=== PATIENT | male | born 1980 | race Caucasian/White ===

== ENCOUNTER 2017-03-05 08:55 | Emergency (ER) | payer OTHER ==
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
--- NOTE | 2017-03-05 11:45 | ED ORDER SUMMARY ---
..... Patient: CHANTAL BRAVO OrderSheet [facility] VisitID: [id number] [place] [address] 36y, M Registration Date/Time: 03/05/2017 ORDER SHEET Weight: 74.8 kg (stated) Allergies: No Known Drug Allergy GENERAL ORDERS: Hip 2V Left w AP Pelvis Urgent (09:54 03/05/2017 Lidia LEZAMA) (Ack 9:55 Jessica) (10:17 Americo Quintana) MEDICATION ORDERS: IV FLUIDS: ORDER SHEET NOTES: [Electronically signed by Keisha Chun R.N. (15:40 03/05/2017)] [Electronically signed by Aiden Arana MD (02:50 03/07/2017)] [Electronically locked/signed by Keisha Chun R.N. (15:40 03/05/2017)]
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
--- NOTE | 2017-03-05 11:45 | ED ORDER SUMMARY ---
..... Patient: CHANTAL BRAVO OrderSheet [facility] VisitID: [id number] [place] [address] 36y, M Registration Date/Time: 03/05/2017 ORDER SHEET Weight: 74.8 kg (stated) Allergies: No Known Drug Allergy GENERAL ORDERS: Hip 2V Left w AP Pelvis Urgent (09:54 03/05/2017 Lidia LEZAMA) (Ack 9:55 Jessica) (10:17 Americo Quintana) MEDICATION ORDERS: IV FLUIDS: ORDER SHEET NOTES: [Electronically signed by Keisha Chun R.N. (15:40 03/05/2017)] [Electronically signed by Aiden Arana MD (02:50 03/07/2017)] [Electronically locked/signed by Keisha Chun R.N. (15:40 03/05/2017)]
--- NOTE | 2017-03-07 02:50 | ED MAR SUMMARY ---
..... Medication Administration Record [facility] [address] [place] [id number] Patient: CHANTAL BRAVO Visit ID: [id number] 36y, M Weight: 74.8 kg Height/Length: 74 in BMI: 21.2 ALLERGIES: No Known Drug Allergy
--- NOTE | 2017-03-07 02:50 | ED MED RECONCILIATION SUMMARY ---
Patient: CHANTAL BRAVO Medication Reconciliation Report [facility] VisitID: [id number] [place] [address] 36y, M Registration Date/Time: 03/05/2017 Weight: 74.8 kg Height/Length: 74 in. BMI: 21.2 ALLERGIES: No Known Drug Allergy The patient's Home Medications are listed below: NONE. The source(s) of the original Home Medication information: patient The following Medications were given to the patient in the Emergency Department: None. The following Medications were prescribed to the patient: Ibuprofen 600mg tablets: take 1 tablet orally every 8 hours as needed for pain. Dispense thirty (30). No refills. -- Aiden Arana MD
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
--- NOTE | 2017-03-07 02:50 | ED MAR SUMMARY ---
..... Medication Administration Record [facility] [address] [place] [id number] Patient: CHANTAL BRAVO Visit ID: [id number] 36y, M Weight: 74.8 kg Height/Length: 74 in BMI: 21.2 ALLERGIES: No Known Drug Allergy
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
--- NOTE | 2017-03-07 02:50 | ED MED RECONCILIATION SUMMARY ---
Patient: CHANTAL BRAVO Medication Reconciliation Report [facility] VisitID: [id number] [place] [address] 36y, M Registration Date/Time: 03/05/2017 Weight: 74.8 kg Height/Length: 74 in. BMI: 21.2 ALLERGIES: No Known Drug Allergy The patient's Home Medications are listed below: NONE. The source(s) of the original Home Medication information: patient The following Medications were given to the patient in the Emergency Department: None. The following Medications were prescribed to the patient: Ibuprofen 600mg tablets: take 1 tablet orally every 8 hours as needed for pain. Dispense thirty (30). No refills. -- Aiden Arana MD
== END 2017-03-05 12:00 | disposition home or self-care (01) ==
LOC: ED SRH 08:55
DX: S00.93XA Contusion of unspecified part of head, initial encounter (principal); S76.012A Strain of muscle, fascia and tendon of left hip, initial encounter; Y04.0XXA Assault by unarmed brawl or fight, initial encounter; Y93.89 Activity, other specified; Y99.8 Other external cause status; Y92.481 Parking lot as the place of occurrence of the external cause

== ENCOUNTER 2017-03-20 10:50 | Emergency (ER) | payer OTHER ==
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
--- NOTE | 2017-03-20 13:27 | ED ORDER SUMMARY ---
..... Patient: CHANTAL BRAVO OrderSheet [facility] VisitID: [id number] [place] [address] 36y, M Registration Date/Time: 03/20/2017 ORDER SHEET Weight: 77.1 kg (stated) Allergies: No Known Drug Allergy GENERAL ORDERS: Hand 3 or 4V Right Urgent (11:11 03/20/2017 MWinterer R.N. per protocol) (Ack 11:16 KHoerner) (11:41 KHoerner) Forearm Right Urgent (11:12 03/20/2017 MWinterer R.N. per protocol) (Ack 11:16 KHoerner) (11:41 KHoerner) (Cancelled: Patient Xqcqlwa08:41 KHoerner) CBC w Diff Urgent (12:34 03/20/2017 Vicky Rich) (Ack 12:36 KHoerner) (12:44 MWinterer R.N.) CMP Urgent (12:34 03/20/2017 Vicky Rich) (Ack 12:36 KHoerner) (12:44 MWinterer R.N.) Hand 2V Right Urgent (14:59 03/20/2017 LNations ER Tech1 verbal order read back to Vicky Rich) (Cancelled: Wrong Order15:03 KHoerner) Hand 3 or 4V Right Urgent (15:03 03/20/2017 KHoerner verbal order read back to Vicky Rich) (Ack 15:03 KHoerner) (15:25 KHoerner) MEDICATION ORDERS: Tdap IM 0.5 mL (NOW, per protocol) (10:59 03/20/2017 MWinterer R.N. per protocol) (11:00 JBoardletim R.N.) Toradol IM 60 mg (NOW) (12:00 03/20/2017 MWinterer R.N. verbal order read back to Vicky Rich) (12:00 MWinterer R.N.) Lidocaine-Epinephrine Injection 2 % (soln) (NOW) (14:24 03/20/2017 Vicky Rich) (Ack 14:25 JBoarclement R.N.) (15:09 MWinterer R.N.) IV FLUIDS: IV Saline Lock (12:34 03/20/2017 Vicky Rich) (12:44 MWinterer R.N.) Cefazolin IV 1 gm/50mL (NOW) (12:58 03/20/2017 Vicky Rich) (Ack 13:03 MWinterer R.N.) (13:14 MWinterer R.N.) ORDER SHEET NOTES: This document has not been locked and should not be saved in the medical record.
--- NOTE | 2017-03-20 13:27 | ED CLINICAL REPORT ---
Clinical Report - Physicians/Mid Levels [facility] [address] [place] [address] 03/20/2017 10:52 Patient: CHANTAL BRAVO *This is a preliminary document and is subject to change Time Seen: 11:12; initial patient contact. PROGRESS AND PROCEDURES Procedural Sedation: Time: 15:26. Indication: (removal of foreign bodies). Laceration repair. Time-out completed immediately before the procedure. Last po intake: last night. ASA classification: 1 - normal healthy patient. History / physical exam. See physical exam recorded above. Mallampati Classification: Class 1 - soft palate, anterior / posterior tonsillar pillars and uvula visible. Normal airway anatomy. Preparation: consent was obtained and the risks of the procedure, benefits and alternatives were explained to patient. IV established. O2 administered. Placed on pulse oximeter and electronic tech. Suction was made available. Medications: Propofol IV administered by physician. Patient status during sedation: was attended constantly and was cooperative was asleep with sluggish response to stimulation. Vitals were stable. Oxygen saturation levels were normal. The airway was maintained. The recovery was uneventful. Complications: None. Post-procedure: Recovery was uneventful. Returned to baseline. Mental status normal. No acute distress. Sedation and procedure performed by me; intra-service time 1-15 minutes. Removal of Soft Tissue Foreign Body: Time: 15:27. Per protocol, time-out completed immediately before the procedure. The foreign body was glass. Located in the right hand. Prior to the procedure the risks, benefits and alternatives to the procedure were explained and consent was obtained. Anesthesia provided using 2% lidocaine with epinephrine. Wound prepped with Hibiclens and sterile field employed. Wound explored. Foreign body palpated and removed using forceps. Wound irrigated extensively. The foreign body removed was deep. Procedural sedation was employed. Tetanus immunization given. Warnings provided regarding redness, swelling, fever, drainage, bleeding and the possibility of a retained foreign body. Discussed case with on-call health care provider, (call returned 12:42 Dr. Campo. Recommended attempting to remove in ED by me.). Disposition: Discharged home in good and improved condition. CLINICAL IMPRESSION Removal of deep glass soft tissue foreign body to the right wrist. Laceration present. INSTRUCTIONS Protect wound and keep wound area clean. Change dressing twice daily. You may wash wounds briefly, then dry. Apply bacitracin twice daily. Sutures should be removed in seven days. Prescription Medications: Hydrocodone/APAP 5mg / 325mg: take 1-2 orally every 6 hours as needed for pain. Dispense fifteen (15). No refill. Cephalexin 500 mg: take 1 capsule orally every 6 hours for 7 days. No refill. Follow-up: Screening today revealed the patient's blood pressure to be in the pre-hypertensive range. The patient should follow up with a primary care provider for blood pressure management. AMA warnings: Time of assessment: 13:27. Oriented to person, place, and time. Gives appropriate answers and rational explanation of refusal of care. No indication for involuntary commitment is present, signs of psychosis, auditory hallucinations, delusional thinking or suicidal ideations. No slurred speech, tangential thinking, visual hallucinations or homicidal ideations. Speaks coherently. Abstract thinking intact. Clinical Impression: the patient has the capacity to make decisions regarding the medical care offered. Relevant issues reviewed and discussed with the patient. Aware of suspected diagnosis suggested by screening exam. The suspected diagnosis, based upon the initiated medical screening exam, is foreign body(glass) in right hand and has been discussed with the patient. Acknowledges understanding of the reasons for recommendations regarding medical treatment. The recommended medical care being refused is Numbing area to be able to remove the glass. Offered sedation, but pt does not have a ride and refuses to have the procedure done not sedated. (numb areas to remove glass). Discharge instructions were not provided. REFUSAL OF CARE STATEMENT (patient to review and sign in discharge instructions): I have read this paragraph. I understand that a doctor at this hospital wants to give me certain medical care. The doctor explained that care to me, and I understand what that care is. The doctor also explained to me what could happen to me if I leave here without having that care, and I understand what he said. I want to leave this hospital without receiving the recommended care. I know that I am welcome to return to this hospital at any time to receive the recommended care or any other care that I may need at any time, regardless of my ability to pay for such care. Follow-up with: [facility], , , [address], , [place], [address] Follow up in one week for suture removal. Call for an appointment. Hosea [address].
--- NOTE | 2017-03-20 13:27 | ED ORDER SUMMARY ---
..... Patient: CHANTAL BRAVO OrderSheet [facility] VisitID: [id number] [place] [address] 36y, M Registration Date/Time: 03/20/2017 ORDER SHEET Weight: 77.1 kg (stated) Allergies: No Known Drug Allergy GENERAL ORDERS: Hand 3 or 4V Right Urgent (11:11 03/20/2017 MWinterer R.N. per protocol) (Ack 11:16 KHoerner) (11:41 KHoerner) Forearm Right Urgent (11:12 03/20/2017 MWinterer R.N. per protocol) (Ack 11:16 KHoerner) (11:41 KHoerner) (Cancelled: Patient Oexszup84:41 KHoerner) CBC w Diff Urgent (12:34 03/20/2017 Vicky Rich) (Ack 12:36 KHoerner) (12:44 MWinterer R.N.) CMP Urgent (12:34 03/20/2017 Vicky Rich) (Ack 12:36 KHoerner) (12:44 MWinterer R.N.) Hand 2V Right Urgent (14:59 03/20/2017 LNations ER Tech1 verbal order read back to Vicky Rich) (Cancelled: Wrong Order15:03 KHoerner) Hand 3 or 4V Right Urgent (15:03 03/20/2017 KHoerner verbal order read back to Vicky Rich) (Ack 15:03 KHoerner) (15:25 KHoerner) MEDICATION ORDERS: Tdap IM 0.5 mL (NOW, per protocol) (10:59 03/20/2017 MWinterer R.N. per protocol) (11:00 JBoardletim R.N.) Toradol IM 60 mg (NOW) (12:00 03/20/2017 MWinterer R.N. verbal order read back to Vicky Rich) (12:00 MWinterer R.N.) Lidocaine-Epinephrine Injection 2 % (soln) (NOW) (14:24 03/20/2017 Vicky Rich) (Ack 14:25 JBoarclement R.N.) (15:09 MWinterer R.N.) IV FLUIDS: IV Saline Lock (12:34 03/20/2017 Vicky Rich) (12:44 MWinterer R.N.) Cefazolin IV 1 gm/50mL (NOW) (12:58 03/20/2017 Vicky Rich) (Ack 13:03 MWinterer R.N.) (13:14 MWinterer R.N.) ORDER SHEET NOTES: This document has not been locked and should not be saved in the medical record.
--- NOTE | 2017-03-20 13:27 | ED CLINICAL REPORT ---
Clinical Report - Physicians/Mid Levels [facility] [address] [place] [address] 03/20/2017 10:52 Patient: CHANTAL BRAVO *This is a preliminary document and is subject to change Time Seen: 11:12; initial patient contact. PROGRESS AND PROCEDURES Procedural Sedation: Time: 15:26. Indication: (removal of foreign bodies). Laceration repair. Time-out completed immediately before the procedure. Last po intake: last night. ASA classification: 1 - normal healthy patient. History / physical exam. See physical exam recorded above. Mallampati Classification: Class 1 - soft palate, anterior / posterior tonsillar pillars and uvula visible. Normal airway anatomy. Preparation: consent was obtained and the risks of the procedure, benefits and alternatives were explained to patient. IV established. O2 administered. Placed on pulse oximeter and manager decision support. Suction was made available. Medications: Propofol IV administered by physician. Patient status during sedation: was attended constantly and was cooperative was asleep with sluggish response to stimulation. Vitals were stable. Oxygen saturation levels were normal. The airway was maintained. The recovery was uneventful. Complications: None. Post-procedure: Recovery was uneventful. Returned to baseline. Mental status normal. No acute distress. Sedation and procedure performed by me; intra-service time 1-15 minutes. Removal of Soft Tissue Foreign Body: Time: 15:27. Per protocol, time-out completed immediately before the procedure. The foreign body was glass. Located in the right hand. Prior to the procedure the risks, benefits and alternatives to the procedure were explained and consent was obtained. Anesthesia provided using 2% lidocaine with epinephrine. Wound prepped with Hibiclens and sterile field employed. Wound explored. Foreign body palpated and removed using forceps. Wound irrigated extensively. The foreign body removed was deep. Procedural sedation was employed. Tetanus immunization given. Warnings provided regarding redness, swelling, fever, drainage, bleeding and the possibility of a retained foreign body. Discussed case with on-call health care provider, (call returned 12:42 Dr. Campo. Recommended attempting to remove in ED by me.). Disposition: Discharged home in good and improved condition. CLINICAL IMPRESSION Removal of deep glass soft tissue foreign body to the right wrist. Laceration present. INSTRUCTIONS Protect wound and keep wound area clean. Change dressing twice daily. You may wash wounds briefly, then dry. Apply bacitracin twice daily. Sutures should be removed in seven days. Prescription Medications: Hydrocodone/APAP 5mg / 325mg: take 1-2 orally every 6 hours as needed for pain. Dispense fifteen (15). No refill. Cephalexin 500 mg: take 1 capsule orally every 6 hours for 7 days. No refill. Follow-up: Screening today revealed the patient's blood pressure to be in the pre-hypertensive range. The patient should follow up with a primary care provider for blood pressure management. AMA warnings: Time of assessment: 13:27. Oriented to person, place, and time. Gives appropriate answers and rational explanation of refusal of care. No indication for involuntary commitment is present, signs of psychosis, auditory hallucinations, delusional thinking or suicidal ideations. No slurred speech, tangential thinking, visual hallucinations or homicidal ideations. Speaks coherently. Abstract thinking intact. Clinical Impression: the patient has the capacity to make decisions regarding the medical care offered. Relevant issues reviewed and discussed with the patient. Aware of suspected diagnosis suggested by screening exam. The suspected diagnosis, based upon the initiated medical screening exam, is foreign body(glass) in right hand and has been discussed with the patient. Acknowledges understanding of the reasons for recommendations regarding medical treatment. The recommended medical care being refused is Numbing area to be able to remove the glass. Offered sedation, but pt does not have a ride and refuses to have the procedure done not sedated. (numb areas to remove glass). Discharge instructions were not provided. REFUSAL OF CARE STATEMENT (patient to review and sign in discharge instructions): I have read this paragraph. I understand that a doctor at this hospital wants to give me certain medical care. The doctor explained that care to me, and I understand what that care is. The doctor also explained to me what could happen to me if I leave here without having that care, and I understand what he said. I want to leave this hospital without receiving the recommended care. I know that I am welcome to return to this hospital at any time to receive the recommended care or any other care that I may need at any time, regardless of my ability to pay for such care. Follow-up with: [facility], , , [address], , [place], [address] Follow up in one week for suture removal. Call for an appointment. Hosea Rodgers Dr.
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
--- NOTE | 2017-03-20 15:51 | DIAGNOSTIC IMAGING REPORT ---
PROCEDURE: XR HAND 3 OR 4 VIEWS - RIGHT INDICATION: TRAUMA/INJURY TECHNIQUE: Four views. COMPARISON: Wrist films same date at 11:00 a.m. FINDINGS: Osseous structures and joint spaces are normal. Multiple large glass fragments have been removed. Five to six sub-millimeter fragments are seen in the medial soft tissue. IMPRESSION: 1. Status post removal of large class fragments.
--- NOTE | 2017-03-20 21:46 | ED DISCHARGE INSTRUCTIONS ---
Patient: CHANTAL BRAVO General Instructions [facility] VisitID: [id number] [place] [address] 36y, M Registration Date/Time: 03/20/2017 Removal of deep glass soft tissue foreign body to the right wrist. Laceration present. INSTRUCTIONS Protect wound and keep wound area clean. Change dressing twice daily. You may wash wounds briefly, then dry. Apply bacitracin twice daily. Sutures should be removed in seven days. Prescription Medications: Hydrocodone/APAP 5mg / 325mg: take 1-2 orally every 6 hours as needed for pain. Dispense fifteen (15). No refill. Cephalexin 500 mg: take 1 capsule orally every 6 hours for 7 days. No refill. Follow-up: Screening today revealed the patient's blood pressure to be in the pre-hypertensive range. The patient should follow up with a primary care provider for blood pressure management. AMA warnings: Time of assessment: 13:27. Oriented to person, place, and time. Gives appropriate answers and rational explanation of refusal of care. No indication for involuntary commitment is present, signs of psychosis, auditory hallucinations, delusional thinking or suicidal ideations. No slurred speech, tangential thinking, visual hallucinations or homicidal ideations. Speaks coherently. Abstract thinking intact. Clinical Impression: the patient has the capacity to make decisions regarding the medical care offered. Relevant issues reviewed and discussed with the patient. Aware of suspected diagnosis suggested by screening exam. The suspected diagnosis, based upon the initiated medical screening exam, is foreign body(glass) in right hand and has been discussed with the patient. Acknowledges understanding of the reasons for recommendations regarding medical treatment. The recommended medical care being refused is Numbing area to be able to remove the glass. Offered sedation, but pt does not have a ride and refuses to have the procedure done not sedated. (numb areas to remove glass). Discharge instructions were not provided. REFUSAL OF CARE STATEMENT (patient to review and sign in discharge instructions): I have read this paragraph. I understand that a doctor at this hospital wants to give me certain medical care. The doctor explained that care to me, and I understand what that care is. The doctor also explained to me what could happen to me if I leave here without having that care, and I understand what he said. I want to leave this hospital without receiving the recommended care. I know that I am welcome to return to this hospital at any time to receive the recommended care or any other care that I may need at any time, regardless of my ability to pay for such care. Follow-up with: [facility], , , [address], , [place], [address] Follow up in one week for suture removal. Call for an appointment. ADDITIONAL INFORMATION Foreign ObjectUnder The Skin, Removed An object has been removed from under your skin. Although care was taken to remove all particles present, there is always a chance that a small piece may have been left behind. Very small particles that remain under the skin usually cause no problem and need no further treatment. Home care The following guidelines will help you care for your wound at home: Keep the wound clean and dry. If a bandage was applied and it becomes wet or dirty, replace it. Otherwise, leave it in place for the first 24 hours, then change it once a day or as directed. Ifsutureswere used, clean the wound daily: After removing the bandage, wash the area with soap and water. After cleaning, apply a thin layer of antibiotic ointment. This will keep the wound clean and make it easier to remove the stitches. Reapply the bandage. You may shower as usual after the first 24 hours, but do not soak the area in water (no baths or swimming) until the sutures are removed. If asurgical tape closureswere used, keep the area clean and dry. If it becomes wet, blot it dry with a towel. You may use acetaminophen or ibuprofen to control pain, unless another pain medicine was prescribed.If you have chronic liver or kidney disease or ever had a stomach ulcer or GI bleeding, talk with your doctor before using these medicines. Follow-up care Most skin wounds heal within ten days. However, there is an increased risk of infection if there is any particle remaining under the skin. Therefore, check the wound daily for the signs listed below. Stitches should be removed within 714 days. If surgical tape closures were used, remove them after seven days unless told otherwise. Note:Any X-rays taken will be reviewed by a radiologist. You will be notified if there are new findings that may affect your care. When to seek medical care Get prompt medical attention if any of the following occur: Increasing pain in the wound Redness, swelling or pus coming from the wound Fever of 100.4F (38C) or higher, or as directed by your health care provider Bandage Change If the bandage becomes wet or dirty, replace it. Otherwise, leave it in place for the first 24 hours. Then once a day: After removing the bandage, wash the area with soap and water. Use a wet cotton swab to loosen and remove any blood or crust that forms on the wound. After cleaning, apply a thin layer of antibiotic ointment or cream. Reapply the bandage. You may shower as usual after the first 24 hours. If the bandage is on an arm or leg, cover it with a plastic bag rubber banded at both ends before showering. No tub baths or swimming until the bandage is removed and the wound healed (at least 7 days). Hydrocodone Bitartrate, Acetaminophen Oral tablet What is this medicine? ACETAMINOPHEN; HYDROCODONE (a set a BETH nikki fen; radha droe KOE done) is a pain reliever. It is used to treat mild to moderate pain. How should I use this medicine? Take this medicine by mouth. Swallow it with a full glass of water. Follow the directions on the prescription label. If the medicine upsets your stomach, take the medicine with food or milk. Do not take more than you are told to take. Talk to your superintendent maintenance airports regarding the use of this medicine in children. This medicine is not approved for use in children. What side effects may I notice from receiving this medicine? Side effects that you should report to your doctor or health resident care director as soon as possible: allergic reactions like skin rash, itching or hives, swelling of the face, lips, or tongue breathing problems confusion feeling faint or lightheaded, falls stomach pain yellowing of the eyes or skin Side effects that usually do not require medical attention (report to your doctor or health resident care director if they continue or are bothersome): nausea, vomiting stomach upset What may interact with this medicine? alcohol antihistamines isoniazid medicines for depression, anxiety, or psychotic disturbances medicines for sleep muscle relaxants naltrexone narcotic medicines (opiates) for pain phenobarbital ritonavir tramadol What if I miss a dose? If you miss a dose, take it as soon as you can. If it is almost time for your next dose, take only that dose. Do not take double or extra doses. Where should I keep my medicine? Keep out of the reach of children. This medicine can be abused. Keep your medicine in a safe place to protect it from theft. Do not share this medicine with anyone. Selling or giving away this medicine is dangerous and against the law. Store at room temperature between 15 and 30 degrees C (59 and 86 degrees F). Protect from light. Keep container tightly closed. Throw away any unused medicine after the expiration date. Discard unused medicine and used packaging carefully. Pets and children can be harmed if they find used or lost packages. What should I tell my health care provider before I take this medicine? They need to know if you have any of these conditions: brain tumor Crohn's disease, inflammatory bowel disease, or ulcerative colitis drink more than 3 alcohol-containing drinks per day drug abuse or addiction head injury heart or circulation problems kidney disease or problems going to the bathroom liver disease lung disease, asthma, or breathing problems an unusual or allergic reaction to acetaminophen, hydrocodone, other opioid analgesics, other medicines, foods, dyes, or preservatives or trying to get breast-feeding What should I watch for while using this medicine? Tell your doctor or health resident care director if your pain does not go away, if it gets worse, or if you have new or a different type of pain. You may develop tolerance to the medicine. Tolerance means that you will need a higher dose of the medicine for pain relief. Tolerance is normal and is expected if you take the medicine for a long time. Do not suddenly stop taking your medicine because you may develop a severe reaction. Your body becomes used to the medicine. This does NOT mean you are addicted. Addiction is a behavior related to getting and using a drug for a non-medical reason. If you have pain, you have a medical reason to take pain medicine. Your doctor will tell you how much medicine to take. If your doctor wants you to stop the medicine, the dose will be slowly lowered over time to avoid any side effects. You may get drowsy or dizzy when you first start taking the medicine or change doses. Do not drive, use machinery, or do anything that may be dangerous until you know how the medicine affects you. Stand or sit up slowly. There are different types of narcotic medicines (opiates) for pain. If you take more than one type at the same time, you may have more side effects. Give your health care provider a list of all medicines you use. Your doctor will tell you how much medicine to take. Do not take more medicine than directed. Call emergency for help if you have problems breathing. The medicine will cause constipation. Try to have a bowel movement at least every 2 to 3 days. If you do not have a bowel movement for 3 days, call your doctor or health resident care director. Too much acetaminophen can be very dangerous. Do not take Tylenol (acetaminophen) or medicines that contain acetaminophen with this medicine. Many non-prescription medicines contain acetaminophen. Always read the labels carefully. Cephalexin Monohydrate Oral tablet What is this medicine? CEPHALEXIN (sef a YOSEF in) is a cephalosporin antibiotic. It is used to treat certain kinds of bacterial infections It will not work for colds, flu, or other viral infections. How should I use this medicine? Take this medicine by mouth with a full glass of water. Follow the directions on the prescription label. This medicine can be taken with or without food. Take your medicine at regular intervals. Do not take your medicine more often than directed. Take all of your medicine as directed even if you think you are better. Do not skip doses or stop your medicine early. Talk to your superintendent maintenance airports regarding the use of this medicine in children. While this drug may be prescribed for selected conditions, precautions do apply. What side effects may I notice from receiving this medicine? Side effects that you should report to your doctor or health resident care director as soon as possible: allergic reactions like skin rash, itching or hives, swelling of the face, lips, or tongue breathing problems pain or trouble passing urine redness, blistering, peeling or loosening of the skin, including inside the mouth severe or watery diarrhea unusually weak or tired yellowing of the eyes, skin Side effects that usually do not require medical attention (report to your doctor or health resident care director if they continue or are bothersome): gas or heartburn genital or anal irritation headache joint or muscle pain nausea, vomiting What may interact with this medicine? probenecid some other antibiotics What if I miss a dose? If you miss a dose, take it as soon as you can. If it is almost time for your next dose, take only that dose. Do not take double or extra doses. There should be at least 4 to 6 hours between doses. Where should I keep my medicine? Keep out of the reach of children. Store at room temperature between 59 and 86 degrees F (15 and 30 degrees C). Throw away any unused medicine after the expiration date. What should I tell my health care provider before I take this medicine? They need to know if you have any of these conditions: kidney disease stomach or intestine problems, especially colitis an unusual or allergic reaction to cephalexin, other cephalosporins, penicillins, other antibiotics, medicines, foods, dyes or preservatives or trying to get breast-feeding What should I watch for while using this medicine? Tell your doctor or health resident care director if your symptoms do not begin to improve in a few days. Do not treat diarrhea with over the counter products. Contact your doctor if you have diarrhea that lasts more than 2 days or if it is severe and watery. If you have diabetes, you may get a false-positive result for sugar in your urine. Check with your doctor or health resident care director. You have been given the following additional information: Foreign Body, Soft Tissue (Removed) Dressing Change Hydrocodone Bitartrate, Acetaminophen Oral tablet Cephalexin Monohydrate Oral tablet (Electronically signed by Hosea Rodgers Dr. 03/20/2017 21:46)
--- NOTE | 2017-03-20 21:46 | ED MED RECONCILIATION SUMMARY ---
Patient: CHANTAL BRAVO Medication Reconciliation Report [facility] VisitID: [id number] [address] [place] [address] 36y, M Registration Date/Time: 03/20/2017 Weight: 77.1 kg Height/Length: 74 in. BMI: 21.8 ALLERGIES: No Known Drug Allergy The patient's Home Medications are listed below: NONE. The source(s) of the original Home Medication information: patient The following Medications were given to the patient in the Emergency Department: TDAP [IM] IM 0.5 mL, administered: 03/20/2017 11:00:00 AM Toradol [IM] IM 60 mg, administered: 03/20/2017 12:00:00 PM Cefazolin [IVPB] IVPB bolus 0, then 1 gm 100 mL/hr, administered: 03/20/2017 1:14:00 PM Lidocaine-Epinephrine [Injection] Injection 2 %, administered: 03/20/2017 3:09:00 PM IV NS IV Fluids bolus 0, then 150 mL/hr, administered: 03/20/2017 1:14:00 PM IV NS IV Fluids bolus 0, then 999 mL/hr, administered: 03/20/2017 2:41:00 PM The following Medications were prescribed to the patient: Hydrocodone/APAP 5mg / 325mg: take 1-2 orally every 6 hours as needed for pain. Dispense fifteen (15). No refill. -- Hosea Rodgers Dr. Cephalexin 500 mg: take 1 capsule orally every 6 hours for 7 days. No refill. -- Hosea Rodgers Dr.
--- NOTE | 2017-03-20 21:46 | ED MED RECONCILIATION SUMMARY ---
Patient: CHANTAL BRAVO Medication Reconciliation Report [facility] VisitID: [id number] [address] [place] [address] 36y, M Registration Date/Time: 03/20/2017 Weight: 77.1 kg Height/Length: 74 in. BMI: 21.8 ALLERGIES: No Known Drug Allergy The patient's Home Medications are listed below: NONE. The source(s) of the original Home Medication information: patient The following Medications were given to the patient in the Emergency Department: TDAP [IM] IM 0.5 mL, administered: 03/20/2017 11:00:00 AM Toradol [IM] IM 60 mg, administered: 03/20/2017 12:00:00 PM Cefazolin [IVPB] IVPB bolus 0, then 1 gm 100 mL/hr, administered: 03/20/2017 1:14:00 PM Lidocaine-Epinephrine [Injection] Injection 2 %, administered: 03/20/2017 3:09:00 PM IV NS IV Fluids bolus 0, then 150 mL/hr, administered: 03/20/2017 1:14:00 PM IV NS IV Fluids bolus 0, then 999 mL/hr, administered: 03/20/2017 2:41:00 PM The following Medications were prescribed to the patient: Hydrocodone/APAP 5mg / 325mg: take 1-2 orally every 6 hours as needed for pain. Dispense fifteen (15). No refill. -- Hosea Rodgers Dr. Cephalexin 500 mg: take 1 capsule orally every 6 hours for 7 days. No refill. -- Hosea Rodgers Dr.
--- NOTE | 2017-03-20 21:46 | ED MAR SUMMARY ---
..... Medication Administration Record [facility] [address] [facility] [address] [address] Patient: CHANTAL BRAVO Visit ID: [id number] 36y, M Weight: 77.1 kg Height/Length: 74 in BMI: 21.8 ALLERGIES: No Known Drug Allergy Given 11:00 03/20/2017 Praveen Beckham R.N. Medication Administered: TDAP [IM], Dose: 0.5 mL IM. Medication Ordered: Tdap IM 0.5 mL (NOW, per protocol). Given 12:00 03/20/2017 Keisha Chun R.N. Medication Administered: TORADOL [IM] (KETOROLAC TROMETHAMINE), Dose: 60 mg IM. Medication Ordered: Toradol IM 60 mg (NOW). Start 13:14 03/20/2017 Keisha Chun R.N., Stop 13:33 03/20/2017 Keisha Chun R.N. Medication Administered: CEFAZOLIN [IVPB] (CEFAZOLIN SODIUM), Dose: 1 gm IVPB over 30 minute(s), Rate: 100 mL/hr, Dispensed: 50 mL bag, Site: #1 left AC. Medication Ordered: Cefazolin IV 1 gm/50mL (NOW). Start 13:14 03/20/2017 Keisha Chun R.N., Stop 14:40 03/20/2017 Keisha Chun R.N. Medication Administered: IV NS (SALINE), Dose: IV Fluids over 3 hour(s), Rate: 150 mL/hr, Dispensed: 500 mL bag, Site: #1 left AC. Medication Ordered: IV NS : initial bolus none -, then 1000 mL/hr (NOW). Start 14:41 03/20/2017 Keisha Chun R.N., Stop 15:20 03/20/2017 Keisha Chun R.N. Medication Administered: IV NS (SALINE), Dose: IV Fluids over 30 minute(s), Rate: 999 mL/hr, Dispensed: 1000 mL bag, Site: #1 left AC. Medication Ordered: IV NS : initial bolus none -, then 1000 mL/hr (NOW). Given 15:09 03/20/2017 Keisha Chun R.N. Medication Administered: LIDOCAINE-EPINEPHRINE [INJECTION] (LIDOCAINE-EPINEPHRINE), Dose: 2 % Injection. Medication Ordered: Lidocaine-Epinephrine Injection 2 % (soln) (NOW).
--- NOTE | 2017-03-20 21:46 | ED MAR SUMMARY ---
..... Medication Administration Record [facility] [address] [place] [address] Patient: CHANTAL BRAVO Visit ID: [id number] 36y, M Weight: 77.1 kg Height/Length: 74 in BMI: 21.8 ALLERGIES: No Known Drug Allergy Given 11:00 03/20/2017 Praveen Beckham R.N. Medication Administered: TDAP [IM], Dose: 0.5 mL IM. Medication Ordered: Tdap IM 0.5 mL (NOW, per protocol). Given 12:00 03/20/2017 Keisha Chun R.N. Medication Administered: TORADOL [IM] (KETOROLAC TROMETHAMINE), Dose: 60 mg IM. Medication Ordered: Toradol IM 60 mg (NOW). Start 13:14 03/20/2017 Keisha Chun R.N., Stop 13:33 03/20/2017 Keisha Chun R.N. Medication Administered: CEFAZOLIN [IVPB] (CEFAZOLIN SODIUM), Dose: 1 gm IVPB over 30 minute(s), Rate: 100 mL/hr, Dispensed: 50 mL bag, Site: #1 left AC. Medication Ordered: Cefazolin IV 1 gm/50mL (NOW). Start 13:14 03/20/2017 Keisha Chun R.N., Stop 14:40 03/20/2017 Keisha Chun R.N. Medication Administered: IV NS (SALINE), Dose: IV Fluids over 3 hour(s), Rate: 150 mL/hr, Dispensed: 500 mL bag, Site: #1 left AC. Medication Ordered: IV NS : initial bolus none -, then 1000 mL/hr (NOW). Start 14:41 03/20/2017 Keisha Chun R.N., Stop 15:20 03/20/2017 Keisha Chun R.N. Medication Administered: IV NS (SALINE), Dose: IV Fluids over 30 minute(s), Rate: 999 mL/hr, Dispensed: 1000 mL bag, Site: #1 left AC. Medication Ordered: IV NS : initial bolus none -, then 1000 mL/hr (NOW). Given 15:09 03/20/2017 Keisha Chun R.N. Medication Administered: LIDOCAINE-EPINEPHRINE [INJECTION] (LIDOCAINE-EPINEPHRINE), Dose: 2 % Injection. Medication Ordered: Lidocaine-Epinephrine Injection 2 % (soln) (NOW).
--- NOTE | 2017-03-20 21:46 | ED DISCHARGE INSTRUCTIONS ---
Patient: CHANTAL BRAVO General Inst[facility] VisitID: [id number] [place] [address] 36y, M Registration Date/Time: 03/20/2017 Removal of deep glass soft tissue foreign body to the right wrist. Laceration present. INSTRUCTIONS Protect wound and keep wound area clean. Change dressing twice daily. You may wash wounds briefly, then dry. Apply bacitracin twice daily. Sutures should be removed in seven days. Prescription Medications: Hydrocodone/APAP 5mg / 325mg: take 1-2 orally every 6 hours as needed for pain. Dispense fifteen (15). No refill. Cephalexin 500 mg: take 1 capsule orally every 6 hours for 7 days. No refill. Follow-up: Screening today revealed the patient's blood pressure to be in the pre-hypertensive range. The patient should follow up with a primary care provider for blood pressure management. AMA warnings: Time of assessment: 13:27. Oriented to person, place, and time. Gives appropriate answers and rational explanation of refusal of care. No indication for involuntary commitment is present, signs of psychosis, auditory hallucinations, delusional thinking or suicidal ideations. No slurred speech, tangential thinking, visual hallucinations or homicidal ideations. Speaks coherently. Abstract thinking intact. Clinical Impression: the patient has the capacity to make decisions regarding the medical care offered. Relevant issues reviewed and discussed with the patient. Aware of suspected diagnosis suggested by screening exam. The suspected diagnosis, based upon the initiated medical screening exam, is foreign body(glass) in right hand and has been discussed with the patient. Acknowledges understanding of the reasons for recommendations regarding medical treatment. The recommended medical care being refused is Numbing area to be able to remove the glass. Offered sedation, but pt does not have a ride and refuses to have the procedure done not sedated. (numb areas to remove glass). Discharge instructions were not provided. REFUSAL OF CARE STATEMENT (patient to review and sign in discharge instructions): I have read this paragraph. I understand that a doctor at this hospital wants to give me certain medical care. The doctor explained that care to me, and I understand what that care is. The doctor also explained to me what could happen to me if I leave here without having that care, and I understand what he said. I want to leave this hospital without receiving the recommended care. I know that I am welcome to return to this hospital at any time to receive the recommended care or any other care that I may need at any time, regardless of my ability to pay for such care. Follow-up with: [facility], , , [address], , [place], [id number] Follow up in one week for suture removal. Call for an appointment. ADDITIONAL INFORMATION Foreign ObjectUnder The Skin, Removed An object has been removed from under your skin. Although care was taken to remove all particles present, there is always a chance that a small piece may have been left behind. Very small particles that remain under the skin usually cause no problem and need no further treatment. Home care The following guidelines will help you care for your wound at home: Keep the wound clean and dry. If a bandage was applied and it becomes wet or dirty, replace it. Otherwise, leave it in place for the first 24 hours, then change it once a day or as directed. Ifsutureswere used, clean the wound daily: After removing the bandage, wash the area with soap and water. After cleaning, apply a thin layer of antibiotic ointment. This will keep the wound clean and make it easier to remove the stitches. Reapply the bandage. You may shower as usual after the first 24 hours, but do not soak the area in water (no baths or swimming) until the sutures are removed. If asurgical tape closureswere used, keep the area clean and dry. If it becomes wet, blot it dry with a towel. You may use acetaminophen or ibuprofen to control pain, unless another pain medicine was prescribed.If you have chronic liver or kidney disease or ever had a stomach ulcer or GI bleeding, talk with your doctor before using these medicines. Follow-up care Most skin wounds heal within ten days. However, there is an increased risk of infection if there is any particle remaining under the skin. Therefore, check the wound daily for the signs listed below. Stitches should be removed within 714 days. If surgical tape closures were used, remove them after seven days unless told otherwise. Note:Any X-rays taken will be reviewed by a radiologist. You will be notified if there are new findings that may affect your care. When to seek medical care Get prompt medical attention if any of the following occur: Increasing pain in the wound Redness, swelling or pus coming from the wound Fever of 100.4F (38C) or higher, or as directed by your health care provider Bandage Change If the bandage becomes wet or dirty, replace it. Otherwise, leave it in place for the first 24 hours. Then once a day: After removing the bandage, wash the area with soap and water. Use a wet cotton swab to loosen and remove any blood or crust that forms on the wound. After cleaning, apply a thin layer of antibiotic ointment or cream. Reapply the bandage. You may shower as usual after the first 24 hours. If the bandage is on an arm or leg, cover it with a plastic bag rubber banded at both ends before showering. No tub baths or swimming until the bandage is removed and the wound healed (at least 7 days). Hydrocodone Bitartrate, Acetaminophen Oral tablet What is this medicine? ACETAMINOPHEN; HYDROCODONE (a set a BETH nikki fen; radha droe KOE done) is a pain reliever. It is used to treat mild to moderate pain. How should I use this medicine? Take this medicine by mouth. Swallow it with a full glass of water. Follow the directions on the prescription label. If the medicine upsets your stomach, take the medicine with food or milk. Do not take more than you are told to take. Talk to your glass blower helper regarding the use of this medicine in children. This medicine is not approved for use in children. What side effects may I notice from receiving this medicine? Side effects that you should report to your doctor or health healthcare facility administrator as soon as possible: allergic reactions like skin rash, itching or hives, swelling of the face, lips, or tongue breathing problems confusion feeling faint or lightheaded, falls stomach pain yellowing of the eyes or skin Side effects that usually do not require medical attention (report to your doctor or health healthcare facility administrator if they continue or are bothersome): nausea, vomiting stomach upset What may interact with this medicine? alcohol antihistamines isoniazid medicines for depression, anxiety, or psychotic disturbances medicines for sleep muscle relaxants naltrexone narcotic medicines (opiates) for pain phenobarbital ritonavir tramadol What if I miss a dose? If you miss a dose, take it as soon as you can. If it is almost time for your next dose, take only that dose. Do not take double or extra doses. Where should I keep my medicine? Keep out of the reach of children. This medicine can be abused. Keep your medicine in a safe place to protect it from theft. Do not share this medicine with anyone. Selling or giving away this medicine is dangerous and against the law. Store at room temperature between 15 and 30 degrees C (59 and 86 degrees F). Protect from light. Keep container tightly closed. Throw away any unused medicine after the expiration date. Discard unused medicine and used packaging carefully. Pets and children can be harmed if they find used or lost packages. What should I tell my health care provider before I take this medicine? They need to know if you have any of these conditions: brain tumor Crohn's disease, inflammatory bowel disease, or ulcerative colitis drink more than 3 alcohol-containing drinks per day drug abuse or addiction head injury heart or circulation problems kidney disease or problems going to the bathroom liver disease lung disease, asthma, or breathing problems an unusual or allergic reaction to acetaminophen, hydrocodone, other opioid analgesics, other medicines, foods, dyes, or preservatives or trying to get breast-feeding What should I watch for while using this medicine? Tell your doctor or health healthcare facility administrator if your pain does not go away, if it gets worse, or if you have new or a different type of pain. You may develop tolerance to the medicine. Tolerance means that you will need a higher dose of the medicine for pain relief. Tolerance is normal and is expected if you take the medicine for a long time. Do not suddenly stop taking your medicine because you may develop a severe reaction. Your body becomes used to the medicine. This does NOT mean you are addicted. Addiction is a behavior related to getting and using a drug for a non-medical reason. If you have pain, you have a medical reason to take pain medicine. Your doctor will tell you how much medicine to take. If your doctor wants you to stop the medicine, the dose will be slowly lowered over time to avoid any side effects. You may get drowsy or dizzy when you first start taking the medicine or change doses. Do not drive, use machinery, or do anything that may be dangerous until you know how the medicine affects you. Stand or sit up slowly. There are different types of narcotic medicines (opiates) for pain. If you take more than one type at the same time, you may have more side effects. Give your health care provider a list of all medicines you use. Your doctor will tell you how much medicine to take. Do not take more medicine than directed. Call emergency for help if you have problems breathing. The medicine will cause constipation. Try to have a bowel movement at least every 2 to 3 days. If you do not have a bowel movement for 3 days, call your doctor or health healthcare facility administrator. Too much acetaminophen can be very dangerous. Do not take Tylenol (acetaminophen) or medicines that contain acetaminophen with this medicine. Many non-prescription medicines contain acetaminophen. Always read the labels carefully. Cephalexin Monohydrate Oral tablet What is this medicine? CEPHALEXIN (sef a YOSEF in) is a cephalosporin antibiotic. It is used to treat certain kinds of bacterial infections It will not work for colds, flu, or other viral infections. How should I use this medicine? Take this medicine by mouth with a full glass of water. Follow the directions on the prescription label. This medicine can be taken with or without food. Take your medicine at regular intervals. Do not take your medicine more often than directed. Take all of your medicine as directed even if you think you are better. Do not skip doses or stop your medicine early. Talk to your glass blower helper regarding the use of this medicine in children. While this drug may be prescribed for selected conditions, precautions do apply. What side effects may I notice from receiving this medicine? Side effects that you should report to your doctor or health healthcare facility administrator as soon as possible: allergic reactions like skin rash, itching or hives, swelling of the face, lips, or tongue breathing problems pain or trouble passing urine redness, blistering, peeling or loosening of the skin, including inside the mouth severe or watery diarrhea unusually weak or tired yellowing of the eyes, skin Side effects that usually do not require medical attention (report to your doctor or health healthcare facility administrator if they continue or are bothersome): gas or heartburn genital or anal irritation headache joint or muscle pain nausea, vomiting What may interact with this medicine? probenecid some other antibiotics What if I miss a dose? If you miss a dose, take it as soon as you can. If it is almost time for your next dose, take only that dose. Do not take double or extra doses. There should be at least 4 to 6 hours between doses. Where should I keep my medicine? Keep out of the reach of children. Store at room temperature between 59 and 86 degrees F (15 and 30 degrees C). Throw away any unused medicine after the expiration date. What should I tell my health care provider before I take this medicine? They need to know if you have any of these conditions: kidney disease stomach or intestine problems, especially colitis an unusual or allergic reaction to cephalexin, other cephalosporins, penicillins, other antibiotics, medicines, foods, dyes or preservatives or trying to get breast-feeding What should I watch for while using this medicine? Tell your doctor or health healthcare facility administrator if your symptoms do not begin to improve in a few days. Do not treat diarrhea with over the counter products. Contact your doctor if you have diarrhea that lasts more than 2 days or if it is severe and watery. If you have diabetes, you may get a false-positive result for sugar in your urine. Check with your doctor or health healthcare facility administrator. You have been given the following additional information: Foreign Body, Soft Tissue (Removed) Dressing Change Hydrocodone Bitartrate, Acetaminophen Oral tablet Cephalexin Monohydrate Oral tablet (Electronically signed by Hosea Rodgers Dr. 03/20/2017 21:46)
== END 2017-03-20 16:50 | disposition home or self-care (01) ==
LOC: ED SRH 10:50
DX: S61.521A Laceration with foreign body of right wrist, initial encounter (principal); W25.XXXA Contact with sharp glass, initial encounter; Y93.89 Activity, other specified; Y99.9 Unspecified external cause status; Y92.009 Unspecified place in unspecified non-institutional (private) residence as the place of occurrence of the external cause; Z23 Encounter for immunization